=== PATIENT | male | born 1935 | race African-American/Black ===

== ENCOUNTER 2019-05-03 22:59 | Inpatient (IN) | payer MEDICARE, BC ==
[~2019-05-03] VITALS: Ht 182.9 cm; Wt 80.7 kg
[~2019-05-03 22:59] MED LIST: ASPI-1073 PO; CHON250C PO; MULT1TAB PO; SIMV20TA2 PO; XALAO EACHEYE
[2019-05-03] MEDS ORDERED: MAGNESIUM 2 G PREMIX 50 ML IV ONE (23:15)
[2019-05-03] MEDS ORDERED: METHYLPREDNISOLONE SOD SUCC 125 MG/2 ML VIAL IV STA (23:15)
[2019-05-03] MEDS ORDERED: IPRATROPIUM BROMIDE (0.02%) 0.5MG/2.5ML NEB HHN STA (23:15)
[2019-05-03] MEDS ORDERED: ALBUTEROL (0.083%) 2.5MG/3ML NEB HHN STA (23:15)
[2019-05-03 23:48] LABS: BASOPHILS % 0.4 % (0.0-2.0); EOSINOPHILS % 2.8 % (0.0-5.0); HEMATOCRIT. 34.3 % (42.0-52.0); HEMOGLOBIN. 11.2 g/dL (14.0-18.0); LYMPHOCYTES % 15.7 % (20.0-50.0); MEAN CORPUSCULAR VOLUME 85.4 fL (80.0-94.0); MEAN PLATELET VOLUME 8.8 fl (7.4-10.4); MONOCYTES % 6.8 % (2.0-8.0); NEUTROPHILS % 74.3 % (40.0-76.0); PLATELET 141 x1000/uL (130-400); RED BLOOD CELL COUNT 4.02 mill/uL (4.7-6.1)
[2019-05-03 23:49] LABS: CHLORIDE 109 mEq/L (98-107)
[2019-05-03 23:55] LABS: D-DIMER 0.37 mg/L FEU (<0.50); INR 1.1; PARTIAL THROMBOPLASTIN TIME 32.9 sec (23.4-31.0); PROTHROMBIN TIME 11.4 sec (9.6-11.0)
[2019-05-04] MEDS ORDERED: FUROSEMIDE 40MG/4ML VIAL IVP NR (01:00)
[2019-05-04 10:30] VITALS: BP 148/66
[2019-05-04] MEDS ORDERED: IPRATROPIUM/ALBUTEROL 0.5-3(2.5)MG/3ML NEB HHN PRN (10:30)
[2019-05-04] MEDS ORDERED: ACETAMINOPHEN 325MG TABLET PO PRN (10:30)
[2019-05-04] MEDS ORDERED: ONDANSETRON HCL 4MG/2ML INJ IV PRN (10:30)
[2019-05-04] MEDS ORDERED: DOCUSATE SODIUM 100MG CAPSULE PO PRN (10:30)
[2019-05-04] MEDS ORDERED: CLONIDINE 0.1MG TABLET PO PRN (10:30)
[2019-05-04] MEDS ORDERED: LORAZEPAM 0.5MG TABLET PO PRN (10:30)
[2019-05-04] MEDS ORDERED: GUAIFENESIN 200MG/10ML SUGAR FREE UDC PO PRN (10:30)
[2019-05-04] MEDS ORDERED: TAMS-11 PO (10:56)
[2019-05-04] MEDS ORDERED: NAPROXEN 250MG TABLET PO PRN (12:45)
[2019-05-04] MEDS: ENOXAPARIN 40MG/0.4ML SYR SUBCUT SCH (13:15)
[2019-05-04] MEDS ORDERED: ALBUTEROL (0.083%) 2.5MG/3ML NEB HHN PRN (17:45)
[2019-05-04] MEDS: LATANOPROST 0.005% OPHTH DROPS 2.5ML BOTHEYE SCH ×2 (20:35→21:00)
[2019-05-04] MEDS: ATORVASTATIN CALCIUM 20MG TABLET PO SCH ×2 (20:36→21:00)
[2019-05-05] VITALS: BP 125/67
[2019-05-05 04:00] VITALS: BP 118/56
[2019-05-05 07:38] LABS: BASOPHILS % 0.1 % (0.0-2.0); EOSINOPHILS % 0.8 % (0.0-5.0); HEMATOCRIT. 35.1 % (42.0-52.0); HEMOGLOBIN. 11.6 g/dL (14.0-18.0); LYMPHOCYTES % 12.4 % (20.0-50.0); MEAN CORPUSCULAR HEMOGLOBIN 28.1 pg (28.0-32.0); MEAN CORPUSCULAR VOLUME 85.1 fL (80.0-94.0); MEAN PLATELET VOLUME 9.9 fl (7.4-10.4); MONOCYTES % 7.8 % (2.0-8.0); NEUTROPHILS % 78.9 % (40.0-76.0); PLATELET 159 x1000/uL (130-400); RED BLOOD CELL COUNT 4.12 mill/uL (4.7-6.1); RED CELL DISTRIBUTION WIDTH 13.8 % (11.6-14.6)
[2019-05-05 08:00] VITALS: BP_SYST 139; BP_DIAS 72; BP_DIAS 74
[2019-05-05 08:34] LABS: CHLORIDE 107 mEq/L (98-107)
[2019-05-05 08:47] LABS: LDL CHOLESTEROL 72 mg/dL (5-100)
[2019-05-05 08:48] LABS: CREATINE KINASE 269 IU/L (39-308)
[2019-05-05 08:53] LABS: CREATINE KINASE MB FRACTION 5.9 ng/mL (0.5-3.6); HDL CHOLESTEROL 41 mg/dL (40-59)
[2019-05-05] MEDS ORDERED: FUROSEMIDE 40MG TABLET PO SCH (09:00)
[2019-05-05 12:10] VITALS: BP 118/61
[2019-05-05] MEDS: ENOXAPARIN 40MG/0.4ML SYR SUBCUT SCH (12:26)
[2019-05-05 15:40] VITALS: BP 118/61
== END 2019-05-05 16:42 | disposition home or self-care (01) | DRG 291 ==
LOC: ER 22:59 → 7WST 05-04 00:28 → ENRESERV 05-04 07:59
PROVIDERS: ADMIT Internal Medicine; ATTEND Internal Medicine
DX: I11.0 Hypertensive heart disease with heart failure (principal); J96.00 Acute respiratory failure, unspecified whether with hypoxia or hypercapnia; E78.00 Pure hypercholesterolemia, unspecified; I50.43 Acute on chronic combined systolic (congestive) and diastolic (congestive) heart failure; E78.5 Hyperlipidemia, unspecified; I48.91 Unspecified atrial fibrillation; I44.0 Atrioventricular block, first degree; M19.042 Primary osteoarthritis, left hand; M19.041 Primary osteoarthritis, right hand; F17.210 Nicotine dependence, cigarettes, uncomplicated; M65.30 Trigger finger, unspecified finger; N40.1 Benign prostatic hyperplasia with lower urinary tract symptoms; R35.1 Nocturia; Z79.82 Long term (current) use of aspirin; Z79.899 Other long term (current) drug therapy; Z98.42 Cataract extraction status, left eye; Z86.73 Personal history of transient ischemic attack (TIA), and cerebral infarction without residual deficits
CPT/HCPCS: 36415; 71045; 80048; 80053; 80061; 82040; 82550; 82553; 83605; 83695; 83735; 83880; 84484; 85025; 85379; 85651; 87804; 93005; 93306; 93880; 93970; 96365; 96372; 96375; 99285; J1650; J1940; J2930; J3475

== ENCOUNTER 2019-10-11 22:48 | Inpatient (IN) | payer MEDICARE, BC ==
[~2019-10-11] VITALS: Ht 180.3 cm; Wt 79.4 kg
[~2019-10-11 22:48] MED LIST changes: +TAMS-11 PO
[2019-10-11] MEDS ORDERED: FUROSEMIDE 40MG/4ML VIAL IV ONE (23:30)
[2019-10-11] MEDS ORDERED: NITROGLYCERIN 50MG PREMIX 250 ML IV ONE ×2 (23:30→23:31)
[2019-10-12 00:25] LABS: CHLORIDE 105 mEq/L (98-107)
[2019-10-12 01:04] LABS: INR 1.1; PARTIAL THROMBOPLASTIN TIME 29.4 sec (23.4-31.0); PROTHROMBIN TIME 11.4 sec (9.6-11.0)
[2019-10-12 01:18] LABS: BASOPHILS % 0.2 % (0.0-2.0); EOSINOPHILS % 2.2 % (0.0-5.0); HEMATOCRIT. 28.9 % (42.0-52.0); HEMOGLOBIN. 9.7 g/dL (14.0-18.0); LYMPHOCYTES % 10.7 % (20.0-50.0); MEAN CORPUSCULAR HEMOGLOBIN 29.3 pg (28.0-32.0); MEAN CORPUSCULAR VOLUME 86.9 fL (80.0-94.0); MEAN PLATELET VOLUME 10.2 fl (7.4-10.4); MONOCYTES % 6.9 % (2.0-8.0); PLATELET 153 x1000/uL (130-400); RED BLOOD CELL COUNT 3.32 mill/uL (4.7-6.1); RED CELL DISTRIBUTION WIDTH 14.4 % (11.6-14.6)
[2019-10-12 09:40] LABS: BG BASE EXCESS -0.2 mmol/L (-2.0-2.0); BG CARBOXYHEMOGLOBIN 0.3 % (0.5-1.5); BG DEOXYHEMOGLOBIN 1.7 % (0.0-5.0); BG FRACTION INSPIRED OXYGEN 24; BG HCO3 ACT 23.6 mmol/L (22.0-26.0); BG METHEMOGLOBIN 0.4 % (0.0-1.5); BG OXYGEN SATURATION 98.3 % (92.0-98.5); BG OXYHEMOGLOBIN 97.6 % (94.0-97.0); BG PCO2 35.1 mmHg (35.0-45.0); BG PH 7.445 (7.350-7.450); BG SAMPLE SITE RIGHT BRACHIAL; BG TOTAL HEMOGLOBIN 10.4 g/dL (12.0-18.0); BG VENT MODE NASAL CANNULA
[2019-10-12] MEDS ORDERED: SOTALOL HCL 80MG TABLET PO SCH (10:00)
[2019-10-12] MEDS: SOTALOL HCL 80MG TABLET PO SCH ×2 (10:07→21:29)
[2019-10-12 12:00] VITALS: BP 134/63
[2019-10-12] MEDS ORDERED: GUAIFENESIN 200MG/10ML SUGAR FREE UDC PO PRN (12:15)
[2019-10-12] MEDS ORDERED: DOCUSATE SODIUM 100MG CAPSULE PO PRN (12:15)
[2019-10-12] MEDS ORDERED: ONDANSETRON HCL 4MG/2ML INJ IV PRN (12:15)
[2019-10-12] MEDS ORDERED: ACETAMINOPHEN 325MG TABLET PO PRN ×2 (12:15)
[2019-10-12] MEDS ORDERED: CLONIDINE 0.1MG TABLET PO PRN (12:15)
[2019-10-12 13:07] VITALS: BP 134/63
[2019-10-12] MEDS ORDERED: APIX5TAB MT (13:31)
[2019-10-12] MEDS ORDERED: SOTA80TA MT (13:31)
[2019-10-12 16:00] VITALS: BP 128/79
[2019-10-12] MEDS ORDERED: APIXABAN 5 MG TABLET PO SCH (17:00)
[2019-10-12 20:00] VITALS: BP 128/77
[2019-10-12] MEDS ORDERED: ATORVASTATIN CALCIUM 20MG TABLET PO SCH (21:00)
[2019-10-12] MEDS ORDERED: LATANOPROST 0.005% OPHTH DROPS 2.5ML EACHEYE SCH (21:00)
[2019-10-13] VITALS: BP 131/53
[2019-10-13 04:00] VITALS: BP 133/60
[2019-10-13] MEDS ORDERED: SODIUM CHLORIDE 0.45% 1,000 ML IV ONE (06:00)
[2019-10-13 06:34] LABS: BASOPHILS % 0.6 % (0.0-2.0); EOSINOPHILS % 2.2 % (0.0-5.0); HEMATOCRIT. 32.6 % (42.0-52.0); MEAN CORPUSCULAR HEMOGLOBIN 29.3 pg (28.0-32.0); MEAN CORPUSCULAR VOLUME 86.3 fL (80.0-94.0); MEAN PLATELET VOLUME 9.9 fl (7.4-10.4); MONOCYTES % 7.5 % (2.0-8.0); NEUTROPHILS % 73.7 % (40.0-76.0); PLATELET 148 x1000/uL (130-400); RED BLOOD CELL COUNT 3.77 mill/uL (4.7-6.1); RED CELL DISTRIBUTION WIDTH 14.3 % (11.6-14.6)
[2019-10-13 07:06] LABS: CHLORIDE 107 mEq/L (98-107)
[2019-10-13 07:17] LABS: TOTAL IRON BINDING CAPACITY 390 ug/dL (250-450)
[2019-10-13 08:06] LABS: VITAMIN B12 SERUM 788 pg/mL (211-911)
[2019-10-13 08:57] VITALS: BP 134/58
[2019-10-13] MEDS ORDERED: POTASSIUM CHLORIDE 20MEQ TABLET SR PO SCH (09:00)
[2019-10-13] MEDS ORDERED: TAMSULOSIN HCL 0.4MG SR CAPSULE PO SCH (09:00)
[2019-10-13] MEDS ORDERED: FUROSEMIDE 40MG TABLET PO SCH (09:00)
[2019-10-13] MEDS ORDERED: FERROUS SULFATE 325MG TABLET PO SCH (10:00)
[2019-10-13] MEDS: SOTALOL HCL 80MG TABLET PO SCH (10:08)
[2019-10-13] MEDS ORDERED: MIDAZOLAM HCL 2 MG/2 ML VIAL ONE (11:47)
[2019-10-13] MEDS ORDERED: FENTANYL CITRATE/PF 50MCG/ML 2ML VIAL ONE (11:48)
[2019-10-13] MEDS ORDERED: LIDOCAINE HCL 1% 20ML VIAL (Pyxis) INJ ONE (11:48)
[2019-10-13] MEDS ORDERED: IODIXANOL 320MG/ML 100 ML BOTTLE IV ONE (11:48)
[2019-10-13 11:56] VITALS: BP 116/62
[2019-10-13] MEDS ORDERED: ACETAMINOPHEN 325MG TABLET PO PRN (12:45)
[2019-10-13] MEDS ORDERED: APIXABAN 5 MG TABLET PO SCH (12:45)
[2019-10-13] MEDS ORDERED: ATROPINE SULFATE 1MG/10ML SYR IV PRN (12:45)
[2019-10-13] MEDS ORDERED: SODIUM CHLORIDE 0.45% 500 ML IV SCH (13:00)
[2019-10-13 13:01] VITALS: BP 107/56
[2019-10-13 15:37] VITALS: BP 128/67
[2019-11-12] MEDS ORDERED: HEPARIN SODIUM 1,000 UNIT/1ML VIAL IV ONE (10:59)
[2019-11-12] MEDS ORDERED: NICARDIPINE 100MCG/ML 10ML VIAL (CATH LAB) IV ONE (10:59)
[2019-11-12] MEDS ORDERED: NITROGLYCERIN 50MCG/ML 10ML VIAL (CATH LAB) IV ONE (10:59)
== END 2019-10-13 16:05 | disposition home or self-care (01) | DRG 286 ==
LOC: ER 22:48 → EDBEDREQ 10-12 00:38 → EDBEDREQSVC 10-12 09:53 → ENRESERV 10-12 11:33 → 7WST 10-12 12:05
PROVIDERS: ADMIT Internal Medicine; ATTEND Internal Medicine
PROC: 5A09357 Assistance with Respiratory Ventilation, Less than 24 Consecutive Hours, Continuous Positive Airway Pressure (ICD-10-PCS; 2019-10-11)
PROC: 4A023N7 Measurement of Cardiac Sampling and Pressure, Left Heart, Percutaneous Approach (ICD-10-PCS; principal; 2019-10-13)
PROC: B2111ZZ Fluoroscopy of Multiple Coronary Arteries using Low Osmolar Contrast (ICD-10-PCS; 2019-10-13)
PROC: B2151ZZ Fluoroscopy of Left Heart using Low Osmolar Contrast (ICD-10-PCS; 2019-10-13)
DX: I11.0 Hypertensive heart disease with heart failure (principal); J96.00 Acute respiratory failure, unspecified whether with hypoxia or hypercapnia; E78.5 Hyperlipidemia, unspecified; I50.43 Acute on chronic combined systolic (congestive) and diastolic (congestive) heart failure; H40.9 Unspecified glaucoma; I25.10 Atherosclerotic heart disease of native coronary artery without angina pectoris; I27.20 Pulmonary hypertension, unspecified; I48.91 Unspecified atrial fibrillation; J44.9 Chronic obstructive pulmonary disease, unspecified; M13.0 Polyarthritis, unspecified; N40.0 Benign prostatic hyperplasia without lower urinary tract symptoms; Z20.828 Contact with and (suspected) exposure to other viral communicable diseases; Z79.01 Long term (current) use of anticoagulants; Z79.82 Long term (current) use of aspirin; Z79.899 Other long term (current) drug therapy; H91.90 Unspecified hearing loss, unspecified ear
CPT/HCPCS: 36415; 36600; 71045; 80048; 80053; 80076; 82040; 82375; 82607; 82805; 83540; 83550; 83735; 83880; 84443; 84484; 85025; 85044; 87635; 93005; 93458; 99291; C1769; C1887; C1893; J1644; J1940; J2250; J3010; J3490; Q9967

== ENCOUNTER → 2021-10-28 | Day surgery (SDC) | payer MEDICARE, BC ==
[~2021-10-28] VITALS: Ht 180.3 cm; Wt 79.4 kg
[~2021-10-28] MED LIST changes: +APIX5TAB MT; +BALANCED SALT IRRIG SOLN 15ML ONE; +BALANCED SALT IRRIG SOLN COMB2 500ML OP NR; +BENI5 PO; +CIPROFLOXACIN 0.3% OPHTH SOLN 2.5ML ONE; +CYCLOPENTOLATE HCL 1% OPHTH DROPS 2ML ONE; +CYCLOPENTOLATE HCL 1% OPHTH DROPS 2ML RIGHTEYE SCH; +FENTANYL CITRATE/PF 50MCG/ML 2ML VIAL ONE; +HYALURONATE SODIUM 10 MG/ML 0.55ML SYRINGE IO ONE; +LACTATED RINGERS 1,000 ML IV SCH; +LIDOCAINE HCL/PF 2% 20 MG/ML 10ML VIAL ONE; +MIDAZOLAM HCL 2 MG/2 ML VIAL ONE; +NEO/POLYMYX B SULF/DEXAMETH OPHTH OINT 3.5GM ONE; +PHENYLEPHRINE HCL 10% OPHTH DROPS 5ML ONE; +PHENYLEPHRINE HCL 10% OPHTH DROPS 5ML RIGHTEYE SCH; +PREDNISOLONE ACETATE 1% OPHTH DROPS 5ML ONE; +SOTA80TA MT; +TETRACAINE 0.5% OPHTH DROPS 4ML ONE; +TROPICAMIDE 1% OPHTH DROPS 15ML ONE; +TROPICAMIDE 1% OPHTH DROPS 15ML RIGHTEYE SCH
== END | disposition home or self-care (01) ==
LOC: OR 06:17
PROVIDERS: ATTEND Ophthalmology
DX: H25.89 Other age-related cataract (principal); E78.00 Pure hypercholesterolemia, unspecified; I50.9 Heart failure, unspecified; N40.0 Benign prostatic hyperplasia without lower urinary tract symptoms; Z79.899 Other long term (current) drug therapy; Z98.890 Other specified postprocedural states; Z20.822 Contact with and (suspected) exposure to COVID-19; Z72.89 Other problems related to lifestyle
CPT/HCPCS: 66982; 87426; C9803; J2250; J3010; J3490; V2632